=== PATIENT | female | born 1980 | race Caucasian/White ===

== ENCOUNTER 2018-09-25 16:36 | Emergency (ER) | payer MEDICAID ==
--- NOTE | 2018-09-25 16:48 | Emergency Department Record ---
History of Present Illness - General Chief complaint: Extremity Problem Stated complaint: RT BICEP LUMP Time Seen by Provider: 09/25/18 16:38 Source: Patient Mode of Arrival: Ambulatory Limitations: No limitations - History of Present Illness Initial comments: 37 yo female presents with pain, redness and swelling up the upper arm. The onset was three days ago. It is warm to touch and tender. She denies history of the same in the past. It involves the dependent area of the upper arm from the axilla to elbow. No MRSA history. She has some small abrasions of the upper arm outside of the area involved. MD Complaint: Extremity pain, Extremity swelling -: Days(s) (3) Location: Arm History of Same: No -: Yes Myalgia Radiation: Proximal, Distal Quality: Aching Consistency: Constant Improves with: Nothing Worsens with: Palpation, Weight bearing Associated Symptoms: Denies other symptoms - Related Data Home Medications Medication Instructions Recorded Confirmed Last Taken No Home Med [NO HOME MEDS] 09/25/18 09/25/18 Unknown Allergies Allergy/AdvReac Type Severity Reaction Status Date / Time cefazolin [From Anc] Allergy HIVES Verified 09/25/18 16:46 gabapentin Allergy HIVES Verified 09/25/18 16:46 Sulfa (Sulfonamide Allergy HIVES Verified 09/25/18 16:46 Antibiotics) Review of Systems Constitutional: Denies: Chills, Fever, Malaise, Weakness Eyes: Denies: Eye discharge ENT: Denies: Congestion, Throat pain Respiratory: Denies: Cough, Dyspnea Cardiovascular: Denies: Chest pain, Palpitations, Syncope Endocrine: Denies: Fatigue, Polydipsia, Polyuria Gastrointestinal: Denies: Abdominal pain, Diarrhea, Nausea, Vomiting Genitourinary: Denies: Dysuria, Urgency Musculoskeletal: Reports: Myalgia. Denies: Arthralgia, Neck pain Skin: Reports: Change in color, Rash Neurological: Denies: Headache, Numbness, Weakness Psychiatric: Denies: Anxiety Hematological/Lymphatic: Denies: Easy bleeding, Easy bruising, Swollen glands Physical Exam - General General Appearance: Alert, Oriented x3, Cooperative, No acute distress, Moderate distress - Head Head exam: Atraumatic, Normal inspection - Eye Eye exam: Normal appearance. negative: Conjunctival injection - ENT ENT exam: Normal exam Ear exam: Normal external inspection Nasal Exam: Normal inspection Mouth exam: Normal external inspection - Neck Neck exam: Normal inspection - Respiratory Respiratory exam: Normal lung sounds bilaterally. negative: Respiratory distress - Cardiovascular Cardiovascular Exam: Regular rate, Normal rhythm, Normal heart sounds Peripheral Pulses: 2+: Radial (R) - Rectal Rectal exam: Deferred - exam: Deferred - Extremities Extremities exam: Full ROM, Tenderness. negative: Normal inspection Image of Full Body: 1 - swelling, warmth, erythema, some firmness from the axilla to the elbow, she is able to lift the arm at the shoulder easily and move the elbow. - Back Back exam: Reports: Normal inspection - Neurological Neurological exam: Alert, Oriented X3 - Psychiatric Psychiatric exam: Normal affect, Normal mood - Skin Skin exam: Erythema Course - Reevaluation(s) Reevaluation #1: 09/25/18 17:37 The CBC was reviewed. The WBC is 12 The BMP is normal The HCG is negative The CRP is 17 09/25/18 19:07 09/25/18 19:[address] was reviewed. Extensive inflammation along the humerus consistent with cellulitis possible organized fluid near the axilla that may be an abscess. No air bubble in the ST or in the organizing area of fluid. The results were discussed with the patient Dr Bianchi was contacted from surgery. He recommends ED to ED transfer for evaluation. Dr Sanchez of the ED was contacted and accepts the patient for ED to ED transfer Medical Decision Making - Lab Data Result diagrams: 09/25/18 16:50 09/25/18 16:50 Disposition Disposition: Transfer Clinical Impression: Abscess of upper limb Cellulitis Qualifiers: Site of cellulitis: extremity Site of cellulitis of extremity: upper extremity Laterality: right Qualified Code(s): L03.113 - Cellulitis of right upper limb Disposition: Acute Care Hospital [place] [facility] [place]: Surgery Consultation Accepting Physician: Tash Sanchez Time Discussed w/Accepting Physician: 19:12 Condition: (2) Stable Forms: Patient Portal Access Time of Disposition: 19:12 Quality - Quality Measures Quality Measures: N/A - Blood Pressure Screening Does Patient Have Any of the Following: No Blood Pressure Classification: Hypertensive Reading Systolic Measurement: 133 Diastolic Measurement: 105 Screening for High Blood Pressure: < Pre-Hypertensive BP, F/U Documented > [G8950] Pre-Hypertensive Follow-up Interventions: Referral to alternative/primary care provider.
[2018-09-25 16:58] LABS: ABSOLUTE NEUTROPHIL COUNT 10.11; MEAN CELL VOLUME 92.3 fl (81-97); MEAN CORPUSCULAR HEMOGLOBIN 29.9 pg (27-33); MEAN CORPUSCULAR HGB CONC 32.4 g/dl (32-36); MEAN PLATELET VOLUME 9.8 fl (7.4-10.4); PLATELET COUNT 344 K/uL (130-400); RED BLOOD COUNT 4.01 M/uL (3.80-5.40); RED CELL DISTRIBUTION WIDTH 13.4 % (11.5-14.5); WHITE BLOOD COUNT W/O DIFF 12.3 K/uL (4.2-12.2)
[2018-09-25 17:08] LABS: BLOOD UREA NITROGEN 11 mg/dL (6-20); CREATININE 0.6 mg/dL (0.5-0.9); EST GLOMERULAR FILTRATION RATE > 60 mL/min
[2018-09-25 17:11] LABS: GLUCOSE,RANDOM 87 mg/dL (74-109); PLATELET ESTIMATE NORMAL (NORMAL)
[2018-09-25 17:14] LABS: C-REACTIVE PROTEIN 16.99 mg/dL (<0.5)
[2018-09-25] MEDS ORDERED: MORPHINE SULFATE 10MG/1ML **1ML VIAL IVP ONE (17:38)
[2018-09-25] MEDS ORDERED: CLINDAMYCIN PHOS/D5W 900MG 900 MG/50 ML BAG IVPB ONE (18:03)
[2018-09-25] MEDS ORDERED: CLINDAMYCIN 600MG/50ML PREMIX 600 MG/50 ML BAG IVPB ONE (18:08)
[2018-09-25] MEDS ORDERED: KETOROLAC 30 MG/ML VIAL IVP ONE (19:15)
--- NOTE | 2018-09-26 08:14 | CT SCAN REPORT ---
EXAM: CT OF THE RIGHT ARM WITH CONTRAST HISTORY: PAIN AND SWELLING RIGHT UPPER ARM, LUMP NEAR UNDERARM FOR THREE DAYS. NO KNOWN INJURY OR BUG BITE. TECHNIQUE: Axial CT scan of the right arm was performed following IV contrast administration. Please see the medical record for IV contrast specifics. A couple metallic BB's were placed along the skin surface prior to scanning, outlining the area of clinical concern. Comparison: None. FINDINGS: The metallic BB's are placed along the lateral aspect of the upper right arm at the level of the humeral head, and in the ulnar aspect of the distal arm just above the elbow, so essentially including virtually the entire length of the left humeral shaft. Throughout this length there is diffuse stranding of increased soft tissue density in the subcutaneous tissues along the lateral aspect of the arm in particular, and there is probably some overlying skin thickening as well. Findings presumably represent extensive cellulitis. In addition to the diffuse changes, proximally near the level of the upper BB at the level of the humeral head and neck there is probably a more discrete fluid collection in the subcutaneous tissues about 2.8 cm in diameter abutting the skin and extending back into the subcutaneous tissues. There are no associated air bubble, but this could represent an abscess. There is no history of trauma to suggest that this represents extensive hematoma. These presumed inflammatory changes extend down to the level of the lateral border of the adjacent muscle, but do not appear to extend into the muscles themselves. Underlying bones appear intact with no definite fracture of the humerus evident. IMPRESSION: FINDINGS SUGGESTING EXTENSIVE CELLULITIS ALONG THE LATERAL ASPECT OF THE ARM QUITE DIFFUSELY, BUT POSSIBLY WITH A MORE FOCAL ABSCESS HIGH IN THE LATERAL ASPECT OF THE ARM NEAR THE AXILLA DESCRIBED ABOVE. JOB NUMBER: [id number] [facility]
== END 2018-09-25 20:15 | disposition short-term general hospital (02) ==
LOC: ER 16:36
DX: L02.413 Cutaneous abscess of right upper limb (principal)
CPT/HCPCS: 80048; 84703; 85027; 86140; 96365; 96375; 99285; J1885; J2270

== ENCOUNTER 2018-12-16 18:09 | Emergency (ER) | payer MEDICAID ==
--- NOTE | 2018-12-16 18:19 | Emergency Department Record ---
History of Present Illness - General Chief complaint: Extremity Problem Stated complaint: LT HAND INJURY Time Seen by Provider: 12/16/18 18:11 Source: Patient Mode of Arrival: Ambulatory Limitations: No limitations - History of Present Illness Initial comments: 38 yo female presents to ED for evaluation of pain to the left hand following injury while attempting to close a car door last evening. Patient reports pain extending from the mid-dorsal aspect of the hand to the middle finger. Patient report taking Ibuprofen this morning for her pain symptoms, denies other injury on examination. Patient denies health problems other than asthma. MD Complaint: Extremity pain Onset/Timin -: Hour(s) Location: Left, Hand History of Same: No -: Yes Arthralgia Radiation: Distal Quality: Aching Consistency: Constant Improves with: Immobilization Worsens with: Other (Movement) Associated Symptoms: Denies other symptoms - Related Data Allergies Allergy/AdvReac Type Severity Reaction Status Date / Time cefazolin [From Ancef] Allergy HIVES Verified 12/16/18 18:15 gabapentin Allergy HIVES Verified 12/16/18 18:15 Sulfa (Sulfonamide Allergy HIVES Verified 12/16/18 18:15 Antibiotics) Review of Systems Constitutional: Denies: Chills, Fever, Malaise, Night sweats Eyes: Denies: Eye discharge, Eye pain ENT: Denies: Congestion, Ear pain, Epistaxis Respiratory: Denies: Cough, Dyspnea Cardiovascular: Denies: Chest pain, Dyspnea on exertion Endocrine: Denies: Fatigue, Heat or cold intolerance Gastrointestinal: Denies: Abdominal pain, Nausea, Vomiting Genitourinary: Denies: Incontinence, Retention Musculoskeletal: Reports: Arthralgia. Denies: Back pain Skin: Denies: Bruising, Change in color Neurological: Denies: Abnormal gait, Confusion, Headache Psychiatric: Denies: Anxiety Hematological/Lymphatic: Denies: Anemia, Blood Clots Past Medical History - SOCIAL HISTORY Smoking Status: Never smoker Drug Use: None - RESPIRATORY Hx Respiratory Disorders: Yes Hx Asthma: Yes Hx Bronchitis: Yes - CARDIOVASCULAR Hx Cardio Disorders: Yes Hx Hypertension: Yes - NEURO Hx Neuro Disorders: Yes - GI Hx GI Disorders: Yes Hx Abdominal Pain: Yes Hx Reflux: Yes - Hx Genitourinary Disorders: Yes Hx UTI: Yes - ENDOCRINE Hx Endocrine Disorders: No - MUSCULOSKELETAL Hx Musculoskeletal Disorders: No - PSYCH Hx Psych Problems: Yes Hx Anxiety: Yes Hx Depression: Yes - HEMATOLOGY/ONCOLOGY Hx Hematology/Oncology Disorders: No Physical Exam - General General Appearance: Alert, Oriented x3, Cooperative, Mild distress Limitations: No limitations - Head Head exam: Atraumatic, Normocephalic, Normal inspection Head exam detail: negative: Abrasion, Contusion, Morton's sign, General tenderness, Hematoma, Laceration - Eye Eye exam: Normal appearance. negative: Conjunctival injection, Periorbital swelling, Periorbital tenderness, Scleral icterus - ENT Ear exam: negative: Auricular hematoma, Auricular trauma Nasal Exam: negative: Active bleeding, Discharge, Dried blood, Foreign body Mouth exam: negative: Drooling, Laceration, Muffled voice, Tongue elevation - Neck Neck exam: Normal inspection. negative: Meningismus, Tenderness - Respiratory Respiratory exam: Normal lung sounds bilaterally. negative: Respiratory distress, Rhonchi, Stridor, Wheezes - Cardiovascular Cardiovascular Exam: Regular rate, Normal rhythm, Normal heart sounds Peripheral Pulses: 3+: Radial (L) - GI/Abdominal GI/Abdominal exam: Soft. negative: Rebound, Rigid, Tenderness - Rectal Rectal exam: Deferred - exam: Deferred - Extremities Extremities exam: Tenderness, Other (Mild STS to the dorsal aspect of the left hand, TTP over the affected area, middle finger held in extension "due to pain". Patient denies pain over the wrist on examination, compartments of the forearm are soft on examination.). negative: Calf tenderness, Pedal edema - Back Back exam: Denies: CVA tenderness (R), CVA tenderness (L) - Neurological Neurological exam: Alert, Normal gait, Oriented X3 - Psychiatric Psychiatric exam: Normal affect, Normal mood - Skin Skin exam: Normal color. negative: Abrasion Type of lesion: negative: abrasion Course - Reevaluation(s) Reevaluation #1: 12/16/18 18:53 Left hand: No acute fracture identified Patient was updated on all results Examination appears c/w contusion to the hand. Discus symptomatic care as discussed, appears stable for discharge at this time. Disposition Disposition: Discharge Clinical Impression: Hand contusion Qualifiers: Encounter type: initial encounter Laterality: left Qualified Code(s): S60.222A - Contusion of left hand, initial encounter Disposition: Home, Self-Care Condition: (2) Stable Instructions: Contusion in Adults (ED) Additional Instructions: Return to ED if your symptoms worsen or if you have any concerns. Ice, Ibuprofen as needed. Follow-up with your family doctor in 3-5 days as directed. Forms: Patient Portal Access Time of Disposition: 18:54 Quality - Quality Measures Quality Measures: N/A - Blood Pressure Screening Does Patient Have Any of the Following: No Blood Pressure Classification: Pre-Hypertensive BP Reading Systolic Measurement: 126 Diastolic Measurement: 82 Screening for High Blood Pressure: < Pre-Hypertensive BP, F/U Documented > [G8950] Pre-Hypertensive Follow-up Interventions: Referral to alternative/primary care provider.
--- NOTE | 2018-12-16 18:46 | RADIOLOGY REPORT ---
EXAMINATION: Left Hand, Minimum Three Views EXAM DATE: 12/16/2018 6:30 PM TECHNIQUE: PA, lateral, and oblique INDICATION: hand injury COMPARISON: None ENCOUNTER: Initial FINDINGS: There is no bone or joint abnormality. IMPRESSION: Unremarkable left hand. No fracture. Dictated by: German Mari MD on 12/16/2018 6:43 PM. .
== END 2018-12-16 18:59 | disposition home or self-care (01) ==
LOC: ER 18:09
DX: S60.222A Contusion of left hand, initial encounter (principal); X50.0XXA Overexertion from strenuous movement or load, initial encounter; I10 Essential (primary) hypertension
CPT/HCPCS: 99283

== ENCOUNTER 2019-03-16 06:32 | Day surgery (SDC) | payer MEDICAID ==
[~2019-03-16 06:32] MED LIST: ACETAMINOPHEN 1,000 MG/100 ML BTL IVPB ONE; CLINDAMYCIN PHOS/D5W 900MG 900 MG/50 ML BAG IVPB ONE
[2019-03-16] MEDS ORDERED: PROPOFOL 10 MG/ML VIAL IV ONE (06:33)
[2019-03-16] MEDS ORDERED: FENTANYL PF 100MCG/2ML VIAL IV ONE (06:33)
[2019-03-16] MEDS ORDERED: LIDOCAINE 2% MDV (20MG/ML) 20ML VIAL IV ONE (06:33)
[2019-03-16] MEDS ORDERED: RINGERS SOLUTION,LACTATED 1,000 ML IV ONE (07:00)
[2019-03-16] MEDS ORDERED: BUPIVACAINE 0.5% (5MG/ML) PF 30ML VIAL SQ ONE (10:20)
[2019-03-16] MEDS ORDERED: LIDOCAINE 1% MPF 100MG/10ML STERILE-PAK AMPULE SQ ONE (10:20)
[2019-03-16] MEDS ORDERED: HYDROCODONE/APAP 7.5/325MG TABLET PO ONE (11:49)
--- NOTE | 2019-03-16 13:41 | Operative Note ---
DATE OF SURGERY: 03/16/2019 SURGEON: Joseph York D.P.M. ANESTHESIA: Local with IV sedation. PREOPERATIVE DIAGNOSIS: PAINFUL HAMMERTOE THIRD TOE LEFT FOOT. POSTOPERATIVE DIAGNOSIS: PAINFUL HAMMERTOE THIRD TOE LEFT FOOT. OPERATION: HAMMERTOE REPAIR WITH SMART TOE IMPLANT THIRD TOE LEFT FOOT. INDICATIONS FOR PROCEDURE: The patient had a painful hammertoe third toe left foot as seen on x-ray. Nonresponsive to conservative care requiring surgical intervention. PROCEDURE IN DETAIL: The patient was brought into the Operating Room Suite and placed supine upon the operating room table. After successful IV sedation was achieved, a third digital block was given in the left foot with approximately 10 ml of a 50/50 mixture of 1% Lidocaine plain and 0.5% Marcaine plain after alcohol prep. Padding was put on left ankle and a pneumatic cuff was put in place. The left foot, ankle and leg was prepped and draped in the usual sterile manner and exsanguinated with an Esmarch and the tourniquet was raised to [address]. Linear incision outlined and made dorsal aspect of contracted proximal interphalangeal joint third toe left foot approximately 2.5 cm in length. Sharp and blunt dissection utilized to deepen the incision. All vital structures identified and retracted throughout the procedure. Extensive tenotomy and capsulotomy performed. Collateral was released and exposed the proximal interphalangeal joint. Adjacent surfaces of the joint were removed with the power sagittal saw, parallel to each other and perpendicular to the weight bearing surface. Bone cuts cooled with saline. The proximal phalangeal shaft drilled, broached, performed to middle phalanx, one 16 mm 10 degree angulated smart toe inserted in typical fashion. Fusion site held close together for one minute. C-arm indicated good [id number] contact effusion site, implant in good position with rectus toe. Wound flushed with copious amounts of sterile saline. Excessive extensor tendon removed, tendon reapproximated in simple interrupted fashion with 4-0 Vicryl, and skin closed in simple interrupted fashion with 4-0 nylon. A combination of sterile Adaptic, 4x4's, 4-inch Esther, and Enmanuel wrap were applied. Tourniquet deflated to 0 mmHg. Hyperemic flush noted to foot. The patient tolerated the procedure well and was transferred to the Recovery Room in in stable condition without complaint. He is to minimize ambulation with surgical shoe, keep extremity elevated, take pain medication as needed, keep dressing clean, dry and intact and she is to contact my cell phone as needed. Follow-up in the office in next several days. JOB NUMBER: [id number] MTDD
== END 2019-03-16 12:17 | disposition home or self-care (01) ==
LOC: SUR 06:32
PROVIDERS: ATTEND Podiatrist
DX: M20.42 Other hammer toe(s) (acquired), left foot (principal); I10 Essential (primary) hypertension; K21.9 Gastro-esophageal reflux disease without esophagitis; J45.909 Unspecified asthma, uncomplicated
CPT/HCPCS: 28285; 01480; 81025; J3010; J3490; J7120